=== PATIENT | female | born 1965 | race African-American/Black ===

== ENCOUNTER 2019-12-15 03:05 | Emergency (ER) | payer OTHER, SELFPAY ==
[2019-12-15 03:05] VITALS: BP 153/93; PULSE 94; RESP 15; TEMP 36; O2SAT 95; BMI 37.9
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
[2019-12-15 04:30] VITALS: BP 151/87; PULSE 90; RESP 16; O2SAT 96
== END 2019-12-15 04:30 | disposition home or self-care (01) ==
PROVIDERS: Emergency Provider Emergency Medicine
DX: S09.90XA Unspecified injury of head, initial encounter (principal); S16.1XXA Strain of muscle, fascia and tendon at neck level, initial encounter; Y04.0XXA Assault by unarmed brawl or fight, initial encounter; Y93.9 Activity, unspecified; Y92.9 Unspecified place or not applicable; I10 Essential (primary) hypertension; F32.9 Major depressive disorder, single episode, unspecified; Z79.899 Other long term (current) drug therapy
CPT/HCPCS: 99283